=== PATIENT | male | born 1950 ===

== ENCOUNTER → 2021-12-19 09:55 | Outpatient (CLI) | payer MEDICARE, BC, SELFPAY ==
[2021-12-19 10:52] LABS: COVID19 -Nasal RAPID Negative (Negative)
== END ==
PROVIDERS: PCP Internal Medicine; Visit Provider Surgery
DX: Z20.822 Contact with and (suspected) exposure to COVID-19 (principal); Z01.812 Encounter for preprocedural laboratory examination
CPT/HCPCS: 87635; C9803

== ENCOUNTER 2021-12-22 10:05 | Day surgery (SDC) | payer MEDICARE, BC, OTHER, SELFPAY ==
[2021-12-22 10:32] VITALS: BP 157/97; PULSE 73; RESP 16; TEMP 35.6; O2SAT 98; BMI 28.3
[2021-12-22] MEDS: SODIUM CHLORIDE 0.9% 1,000 ML 84 ML IV (10:45)
--- NOTE | 2021-12-22 11:30 | PM.HP.1 ---
History of Present Illness History of Present Illness Date Patient Seen: 12/22/21 Time Patient Seen: 11:30 Chief complaint: Colonoscopy Narrative: Here for colon cancer screening. Patient History Family & Social History Social History: household members spouse Tobacco & Substance use: Smoking Status Never smoker alcohol intake current alcohol intake frequency holiday/special occasion Substance Use Type does not use Meds Home Medications and Allergies Home Medications Medication Instructions Recorded Confirmed Type aspirin 81 mg capsule 81 mg PO DAILY 12/22/21 12/22/21 History atorvastatin 80 mg tablet 80 mg PO DAILY 12/22/21 12/22/21 History hydrochlorothiazide 12.5 mg tablet 12.5 mg PO DAILY 12/22/21 12/22/21 History lisinopril 10 mg tablet 10 mg PO DAILY 12/22/21 12/22/21 History metoprolol succinate 25 mg 12.5 mg PO DAILY 12/22/21 12/22/21 History tablet,extended release 24 hr Allergies Allergy/AdvReac Type Severity Reaction Status Date / Time No Known Drug Allergies Allergy Verified 12/19/21 15:16 Review of Systems Review of Systems ROS: Yes All systems reviewed with the patient and are negative except as otherwise documented Exam Vital Signs (past 8 hours): - 12/22/21 10:32 Temperature 96.1 F L Pulse Rate 73 Respiratory Rate 16 Blood Pressure 157/97 H Pulse Oximetry 98 Oxygen Delivery Method Room Air Oxygen Flow Rate 0 Oxygen Delivery Method Room Air Oxygen Flow Rate 0 Const General: cooperative HENMT Head: normal to inspection Eyes General: appearance normal, both eyes and all related structures Neck Neck: normal visual inspection Chest Chest: normal inspection of the chest Resp Effort & Inspection: normal respiratory effort Cardio Rate: regular rate GI Inspection: normal to inspection Skin General: no rashes or lesions noted Neuro General: patient alert and patient awake Extrem General: normal to inspection and no pedal edema Psych Appearance: grossly normal Assessment & Plan Assessment & Plan narrative: 70-year-old male here for colon cancer screening. Colonoscopy is pursued today. Time Spent With Patient Critical Care time: I spent a total of [] minutes of critical care time on this patient's care today; this time is exclusive of procedural time.
--- NOTE | 2021-12-22 11:31 | PM.PREOP ---
Pre-operative Note COVID-19 COVID-19 status: Negative Result date/Date tested (Pos, Neg/Pending): 12/19/21 Criteria for continued procedure: Possibility delay results in more complex future surgery or treatment Interval Note History & Physical reviewed/Exam performed by Physician: Yes Changes to H&P: No ASA Class (for procedural sedation): II
--- NOTE | 2021-12-22 11:48 | P.OP.COLON_ITS ---
Operative Date/Time/Diagnoses Date of procedure: 12/22/21 Time of procedure: 11:48 Pre-op diagnosis: Colon cancer screening Post-op diagnosis: same Procedure & Clinicians Study performed: Colonoscopy Same procedure as scheduled: Yes Indications: Colon cancer screening Surgeon: Tee Roa Procedure Notes SCOAP/Timeout: Done Procedure in detail: After the risks and benefits were explained, written and verbal informed consent was obtained. The patient was brought into the procedure room and placed into the left lateral decubitus position. Please see nurse scroll machine operator notes for sedation details. Digital rectal examination was accomplished. The scope was introduced into the patient and advanced under direct visualization to the cecum as identified by the appendiceal orifice and ileocecal valve. The scope was slowly withdrawn to carefully examine the mucosa for any defects or lesions. Comprehensive imaging was accomplished throughout the rectum including the dentate line. The colon was decompressed, the scope was then removed from the patient who tolerated the procedure well. Adult colonoscope Bowel prep adequate Scope withdrawal time: 6 minutes Sedation minutes: 12 Specimen(s): none sent Complications: none Impression: The patient had some diverticulosis noted in the sigmoid. No significant polyps mass lesions or inflammatory features identified throughout. Patient had grade 3 nonbleeding nonthrombosed internal hemorrhoids. Endoscopic diagnosis 1. Grade 3 Hemorrhoids 2. Diverticulosis Post-procedure Plan for aftercare: 1. Continue to follow along in primary care 2. Consider repeat colon cancer screening in 10 years time. Disposition: PACU
[2021-12-22 11:49] VITALS: BP 107/76; PULSE 73; RESP 16; TEMP 36.5; O2SAT 95
[2021-12-22 11:54] VITALS: BP 108/80; PULSE 68; RESP 17; O2SAT 95
[2021-12-22 11:59] VITALS: BP 115/81; PULSE 65; RESP 19; TEMP 36.4; O2SAT 98
--- NOTE | 2021-12-22 13:36 | SUR.PHASEII ---
Pt ready to go, left unit in stable condition.
== END 2021-12-22 12:45 | disposition home or self-care (01) ==
PROVIDERS: PCP Internal Medicine; Referring Provider Internal Medicine Gastroenterology; Visit Provider Internal Medicine Gastroenterology
PROC: 0DJD8ZZ Inspection of Lower Intestinal Tract, Via Natural or Artificial Opening Endoscopic (ICD-10-PCS; CPT 45378; principal; 2021-12-22 11:00)
DX: Z12.11 Encounter for screening for malignant neoplasm of colon (principal); K57.30 Diverticulosis of large intestine without perforation or abscess without bleeding; K64.2 Third degree hemorrhoids
CPT/HCPCS: G0121; J2704

== ENCOUNTER 2025-01-22 17:20 | Emergency (ER) | payer MEDICARE, OTHER, SELFPAY ==
[2025-01-22 17:47] VITALS: BP 139/78; PULSE 81; RESP 18; TEMP 36.7; O2SAT 98; BMI 28.5
--- NOTE | 2025-01-22 17:59 | EKG_ITS ---
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
--- NOTE | 2025-01-22 18:00 | DI.US.S_ITS ---
PROCEDURE: US ABDOMEN LIMITED INDICATIONS: RUQ pain TECHNIQUE: Real-time scanning was performed of the abdominal and retroperitoneal organs, with image documentation. COMPARISON: None. FINDINGS: Liver: Liver is normal in size and homogeneous in echotexture. Gallbladder: Mild debris/sludge. No wall thickening. No pericholecystic edema. Negative sonographic Willard's sign. Biliary ducts: Intrahepatic bile ducts are non-dilated. Extrahepatic bile duct caliber measures 2 mm. Normal is 6-7 mm or less in diameter, or 10 mm or less post-cholecystectomy. Pancreas: Visualized portions of the pancreas are sonographically normal. Miscellaneous: No free abdominal fluid. IMPRESSION: Mild debris/sludge within the gallbladder without evidence of acute cholecystitis. Dictated by: Jovi Reynolds M.D. on 01/22/2025 at 18:49 Approved by: Jovi Reynolds M.D. on 01/22/2025 at 18:52
[2025-01-22 18:28] LABS: Add Manual Diff / Slide Review NO; Hematocrit 37.6 % (41-53); Hemoglobin 13.4 g/dL (13.5-17.5); Lymphocytes Absolute Auto 1500 /uL (1100-4500); Mean Corpuscular HGB Conc 35.7 % (30-36); Mean Corpuscular Hemoglobin 35.6 PG (26-34); Mean Corpuscular Volume 99.6 fL (80-100); Platelet Count 168 X10^3/uL (150-400)
[2025-01-22 18:35] LABS: Alanine Aminotransferase 49 IU/L (<50); Albumin 4.9 g/dL (3.5-5.0); Albumin Globulin Ratio 1.5 (1.0-2.8); Alkaline Phosphatase 72 U/L (38-126); Blood Urea Nitrogen 20 mg/dL (9-20); Calcium 9.7 mg/dL (8.4-10.2); Carbon Dioxide 25 mmol/L (22-32); Chloride 101 mmol/L (98-107); Estimated Glomerular Filt Rate > 60 mL/min (>60); Globulin 3.3 g/dL (1.7-4.1); Glucose 99 mg/dL (70-99); HEMOLYSIS < 15 (0-50); Lipase 268 U/L (23-300); Potassium 3.9 mmol/L (3.4-5.1); Sodium 138 mmol/L (137-145); Total Protein 8.2 g/dL (6.3-8.2)
--- NOTE | 2025-01-22 21:45 | PC.NURSE ---
pt feeling better after medication, no dizziness or nausea with standing able to walk without difficulty
--- NOTE | 2025-01-22 21:46 | ED.GENADULT ---
HPI - General Adult General Chief complaint: Abdominal Pain Stated complaint: pain under ribs right hand side front and back Time Seen by Provider: 01/22/25 17:53 Source: patient Mode of arrival: Ambulatory History of Present Illness HPI narrative: 74-year-old gentleman with a history of hypertension, coronary artery disease, hyperlipidemia who presents with waxing and waning episodes of right upper quadrant pain that has been present for the last at least 3 weeks and worsening over the last couple of days. He has not necessarily associated this with either eating or fasting. He has had an episode of emesis secondary to pain, there was no blood in the emesis. He has not been having any diarrhea. No chest pain or palpitations Related Data Home Medications ?Medication ?Instructions ?Recorded ?Confirmed aspirin 81 mg capsule 81 mg PO DAILY 12/22/21 12/22/21 atorvastatin 80 mg tablet 80 mg PO DAILY 12/22/21 12/22/21 hydrochlorothiazide 12.5 mg tablet 12.5 mg PO DAILY 12/22/21 12/22/21 lisinopril 10 mg tablet 10 mg PO DAILY 12/22/21 12/22/21 metoprolol succinate 25 mg 12.5 mg PO DAILY 12/22/21 12/22/21 tablet,extended release 24 hr Previous Rx's ?Medication ?Instructions ?Recorded oxycodone-acetaminophen 5 mg-325 1 tab PO Q6H PRN pain #14 tabs 01/22/25 mg tablet Allergies Allergy/AdvReac Type Severity Reaction Status Date / Time No Known Drug Allergies Allergy Verified 01/22/25 17:50 Review of Systems Review of Systems Narrative: Pertinent positive and negative findings as per HPI Patient History Medical History (Updated 01/22/25 @ 22:05 by Adriana Webb MD) Gallstones Hyperlipidemia Hypertension Coronary artery disease Social History household members: spouse alcohol intake: current Smoking Status: Never smoker alcohol intake frequency: holidays/special occasions only Exam Initial Vital Signs Initial Vital Signs: Vital Signs Temperature 98.0 F 01/22/25 17:47 Pulse Rate 81 01/22/25 17:47 Respiratory Rate 18 01/22/25 17:47 Blood Pressure 139/78 01/22/25 17:47 Pulse Oximetry 98 01/22/25 17:47 Oxygen Delivery Method Room Air 01/22/25 17:47 General: Healthy appearing, in no acute distress. Able to give a complete and coherent history. Well-nourished well-developed HEENT: Moist mucous membranes, normal sclera with reactive pupils, Respiratory: Lungs are clear to auscultation, no wheezing no rales no rhonchi. Full and symmetrical air movement Cardiac: Regular rate and rhythm no murmurs Abdomen: Soft, minor tenderness in the right upper quadrant without rebound or guarding Skin: Warm and dry, no rashes Neurologic: Grossly neurologically intact with no obvious asymmetries or abnormalities Extremities: No trauma, well perfused Psych: Cooperative, appropriate insight and affect Course Orders Ordered: ED Orders 01/22/25 17:52 EKG-12 Lead Stat 01/22/25 18:00 US abdomen limited Stat Complete Blood Count AUTO DIFF Stat Comprehensive Metabolic Panel Stat Lipase Stat Ondansetron HCl (Ondansetron 4 Mg/2 Ml Inj) 4 mg IV NOW PRN PRN Reason: Nausea And Vomiting Ondansetron HCl (Ondansetron 4 Mg Odt) 4 mg PO NOW PRN PRN Reason: Nausea And Vomiting Vital Signs Vital signs: Vital Signs - 8 hr 01/22/25 17:47 Temperature 98.0 F Pulse Rate 81 Respiratory Rate 18 Blood Pressure 139/78 Pulse Oximetry 98 Oxygen Delivery Method Room Air Medical Decision Making Lab Data 01/22/25 18:00 01/22/25 18:00 Labs: Lab Results 01/22/25 Range/Units 18:00 WBC 5.2 (4.5-11.0) X10^3/uL RBC 3.78 L (4.5-5.9) X10^6/uL Hgb 13.4 L (13.5-17.5) g/dL Hct 37.6 L (41-53) % MCV 99.6 (80-100) fL MCH 35.6 H (26-34) PG MCHC 35.7 (30-36) % RDW 13.1 (11.6-14.8) % Plt Count 168 (150-400) X10^3/uL Neut % (Auto) 56.3 (50-75) % Lymph % (Auto) 28.5 (25-40) % Pepin % (Auto) 10.6 (3-14) % Eos % (Auto) 4.2 H (2-4) % Baso % (Auto) 0.4 (0-2) % Neut # (Auto) 2900 (3531-1949) /uL Lymph # (Auto) 1500 (1055-0157) /uL Pepin # (Auto) 500 (0-900) /uL Eos # (Auto) 200 (0-450) /uL Baso # (Auto) 0 (0-100) /uL Sodium 138 (137-145) mmol/L Potassium 3.9 (3.4-5.1) mmol/L Chloride 101 (98-107) mmol/L Carbon Dioxide 25 (22-32) mmol/L BUN 20 (9-20) mg/dL Creatinine 0.88 (0.66-1.25) mg/dL Estimated GFR > 60 (>60) mL/min BUN/Creatinine Ratio 22.7 H (6-22) Glucose 99 (70-99) mg/dL Calcium 9.7 (8.4-10.2) mg/dL Total Bilirubin 0.5 (0.2-1.3) mg/dL AST 43 (17-59) IU/L ALT 49 (<50) IU/L Alkaline Phosphatase 72 (38-126) U/L Total Protein 8.2 (6.3-8.2) g/dL Albumin 4.9 (3.5-5.0) g/dL Globulin 3.3 (1.7-4.1) g/dL Albumin/Globulin Ratio 1.5 (1.0-2.8) Lipase 268 (23-300) U/L Urine Dip Bedside Urine Glucose Negative Bedside Urine Bilirubin - Negative Bedside Urine Ketone - Negative Urine Specific Richey 1.020 Bedside Urine Occult Blood - Negative Bedside Urine pH 6.0 Bedside Urine Protein - Negative Bedside Urine Urobilinogen - Negative Bedside Urine Nitrite - Negative Bedside Urine Leukocytes - Negative Esterase Point of care testing: Urine Dip Bedside Urine Glucose Negative Bedside Urine Bilirubin - Negative Bedside Urine Ketone - Negative Urine Specific Richey 1.020 Bedside Urine Occult Blood - Negative Bedside Urine pH 6.0 Bedside Urine Protein - Negative Bedside Urine Urobilinogen - Negative Bedside Urine Nitrite - Negative Bedside Urine Leukocytes - Negative Esterase [facility] Narrative Medical decision making narrative: 74-year-old gentleman presents with waxing and waning right upper quadrant pain. No fevers or chills Imaging, ultrasound, shows mobile gallstones without evidence of acute cholecystitis Lab work is reassuring including no leukocytosis no elevated liver enzymes and normal lipase Patient had a single dose of half a mg Dilaudid which helped with the pain control Care is reviewed with , general surgery. Given the fact that his pain is waxing and waning is controlled by pain medications and he is not showing signs of acute cholecystitis he will be discharged home this evening with urgent outpatient follow up and anticipation of outpatient scheduled laparoscopic cholecystectomy. Findings reviewed with the patient and reasons to return to the emergency department are clearly defined including fevers as well as pain out of control. Discharge Plan Departure Patient Disposition: Home Clinical Impression: Gallbladder pain, Gallstones Instructions: DI for General Gallbladder Conditions Activity Restrictions/Additional Instructions: Thank you for coming in today It looks like your pain is due to gallstones. Fortunately, there is no evidence of gallbladder infection, liver changes, kidney problems or pancreas problems. This means that you do not have to have emergent surgery this evening. You do however still need to follow up with our surgeon. I reviewed your case with Dr. Luna. Please give his office a call, [facility], . He will need to be seen within the next couple of days to schedule an outpatient laparoscopic cholecystectomy or at least discuss further options. Your gallbladder helps to just fat. The lowest fat diet that you are able to tolerate will help with pain control. The more fat you eat, the more your gallbladder squeezes in the more pain that you will have. If you are having pain that can not be controlled with pain medication that I have given you have at home, fevers, chills or are clearly worsening you do need to return to the emergency department. Prescriptions: New oxycodone-acetaminophen 5-325 mg tablet 1 tab PO Q6H PRN (Reason: pain) Qty: 14 0RF No Action atorvastatin 80 mg tablet 80 mg PO DAILY Patient Comments: TAKE ONE TABLET BY MOUTH ONE TIME DAILY IN THE EVENING lisinopril 10 mg tablet 10 mg PO DAILY Patient Comments: TAKE ONE TABLET BY MOUTH ONE TIME DAILY metoprolol succinate 25 mg tablet extended release 24 hr 12.5 mg PO DAILY Patient Comments: TAKE 1/2 TABLET BY MOUTH ONCE DAILY hydrochlorothiazide 12.5 mg tablet 12.5 mg PO DAILY Patient Comments: TAKE 1 TABLET BY MOUTH ONCE DAILY IN THE MORNING aspirin 81 mg Capsule 81 mg PO DAILY Referrals: Kiersten Alvarado MD [Primary Care Provider, Family Practice] Stand Alone Forms: Patient Portal/API
[2025-01-22 22:44] VITALS: BP 130/74; PULSE 72; RESP 18; O2SAT 99
== END 2025-01-22 22:51 | disposition home or self-care (01) ==
PROVIDERS: Emergency Provider Emergency Medicine; PCP Student in an Organized Health Care Education/Training Program
DX: K80.20 Calculus of gallbladder without cholecystitis without obstruction (principal); K82.9 Disease of gallbladder, unspecified
CPT/HCPCS: 76705; 80053; 81003; 83690; 85025; 93005; 96374; 99283; 99284; J1171

== ENCOUNTER 2025-02-13 07:48 | Day surgery (SDC) | payer MEDICARE, OTHER, SELFPAY ==
[2025-02-06 13:45] VITALS: BMI 28.2
[2025-02-13] VITALS (12 sets, daily range): BP systolic 120–154; BP diastolic 57–83; PULSE 77–84; RESP 15–24; TEMP 36.2–36.6; O2SAT 94–98
--- NOTE | 2025-02-13 | PATH_ITS ---
[facility] Accession Number: [id number] No. of containers..01 Tissue . 01 Material submitted: . gallbladder - GALLBLADDER . 01 Diagnosis: GALLBLADDER, CHOLECYSTECTOMY: Chronic cholecystitis and cholelithiasis. MRV 02/21/2025 1327 Local . 01 Electronically signed: . Radha Otero MD, Pathologist NPI- [id number] . 01 Gross description: . The specimen is received in formalin with two patient identifiers and gallbladder consists of a 7.9 x 3.0 x 2.2 cm, previously opened gallbladder. The serosa is hayes-green, smooth, glistening, and otherwise unremarkable. There is a 0.4 x 0.3 cm probe-patent, clipped cystic duct which is further inked blue. The specimen is opened to show a uniformly thick gallbladder wall at 0.1 cm and a hayes-green, finely granular mucosa that is free of exophytic lesions or masses. The lumen is filled with approximately 30 mL of green viscous bile, and there is a 0.5 cm in greatest dimension aggregate of black, multifaceted, crushed gallstones. Grey Roll Worker sections are submitted in cassette A1 to include cystic duct. ([id number]) /MRV 02/14/2025 2018 Local . 01 Pathologist provided ICD-10: K80.10, K81.1 . 01 CPT . 633435 Specimen Comment: A courtesy copy of this report has been sent to [facility] Pathology Performed at: [address] [address], [place], [place] [id number] MD Andres Dawn MD Phone: [phone]
--- NOTE | 2025-02-13 06:25 | PM.PREOP ---
Pre-operative Note Interval Note History & Physical reviewed/Exam performed by Physician: Yes Changes to H&P: No ASA Class (for procedural sedation): II
[2025-02-13] MEDS: LACTATED RINGERS 1,000 ML 42 ML IV ×2 (08:18→10:48)
[2025-02-13] MEDS: ACETAMINOPHEN 325 MG TABLET 975 MG PO (08:18)
--- NOTE | 2025-02-13 09:27 | SUR.OPER ---
Supine on padded OR bed, head on pillow, safety belt at thigh, right arm padded and tucked at side. Left arm secured on padded arm board <90 degrees abduction. Legs uncrossed. Padded footboard in place. Tape over blanket to secure lower legs.
[2025-02-13] MEDS: BUPivacaine 0.25% W/ EPI (PF) 30 ML VIAL 60 ML INJ (09:48)
--- NOTE | 2025-02-13 10:07 | P.OP_ITS ---
Operative Date/Time/Diagnoses Date of procedure: 02/13/25 Time of procedure: 10:07 Pre-op diagnosis: Symptomatic cholelithiasis Post-op diagnosis: same Procedure & Clinicians Procedure: Laparoscopic cholecystectomy with intraoperative cholangiogram attempted Same procedure(s) as scheduled: Yes Indications: 74yo M with symptomatic cholelithiasis Surgeon: Cristofer Luna Assisted?: Yes Grants Administrator: Aaron Solis Anesthesia Type: General Operative Notes Findings: Distended gallbladder, cholangiogram catheter would not advance likely due to spiral valves, unable to achieve cholangiogram, multiple small pigment stones expressed by milking the duct with maryland grasper Closure Type: primary Specimen(s): other (gallbladder) Applied: none Estimated Blood Loss (mL): 10 Blood products transfused: none Procedure in detail: After informed consent and satisfactory general endotracheal anesthesia, the abdomen was prepped and draped in the usual sterile manner. The patient received appropriate preoperative antibiotics and DVT prophylaxis. Surgical time-out was performed with all team members in agreement. The pneumoperitoneum was established under direct vision using the Gallego direct trocar cutdown technique. An 0 Vicryl [id number] suture was placed in the umbilical fascia. The abdominal cavity was insufflated to a pressure of 12 mmHg with carbon dioxide gas. We were able to utilize the lower pressure to reduce pain. The 10 mm, 30 degree lens was inserted and no trauma secondary to the trocar insertion was noted. The 5 mm right upper quadrant trocars x 3 were inserted under direct vision. The patient was placed in reverse Trendelenburg, [id number] position. The gallbladder was noted to be tensely distended but easy to grasp. There were no greater omental adhesions to the gallbladder. The gallbladder fundus was grasped and retracted over the liver. The infundibulum was grasped and retracted laterally for proper exposure of the cystic duct and artery. We used the L hook cautery to score the peritoneum on the medial and lateral surfaces of the gallbladder. The cystic duct and artery were skeletonized with hook cautery dissection. We were able to achieve the critical view of safety with 2 distinct structures entering the gallbladder with segment 5 of the liver posterior. A cholangiogram was attempted by placing hemolock clips on the cystic duct next to the gallbladder, making a ductotomy with laparoscopic Metzenbaum scissors and milking the duct with a [place] grasper. This expressed four small pigmented stones followed by bile consistent with the cystic duct being open. We used the yellow ureteral catheter through the Gómez clamp but we were unable to advance the catheter likely due to spiral valves. Multiple angles were attempted in addition to a saline flush but we were unable to advance the catheter. We also tried to grasp the catheter just inside the ductotomy but the saline simply extravasated so further attempts at cholangiography were abandoned. With this, the cystic duct was doubly clipped and divided with Metzenbaum scissors. The cystic artery was doubly clipped and divided with Metzenbaum scissors. The adhesions between the gallbladder and the liver were divided with hook cautery. The gallbladder was placed into an endo- pouch and removed. The right upper quadrant was irrigated and this was suctioned dry. The liver bed and clips were inspected and there was no bleeding or bile drainage noted. The pneumoperitoneum was released, the trocars were removed. The 0 Vicryl [id number] suture was tied at the umbilical fascia. There was no bleeding noted at the trocar sites. The instrument, sponge and needle counts were all correct x 2. The estimated blood loss was minimal. The skin incisions were closed using 4-0 Monocryl in a subcuticular manner. Dermabond glue was applied as a final dressing. The patient tolerated the procedure well and was extubated in the operating room and transported to the recovery area in stable condition. Complications: none Post-operative Condition: stable Disposition: PACU Plan for aftercare: PACU then home
--- NOTE | 2025-02-13 10:20 | EKG_ITS ---
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
[2025-02-13] MEDS: ONDANSETRON 4 MG/2 ML INJ IV (10:25)
[2025-02-13] MEDS: BACITRACIN OINT 0.9 GM PCKT 1 APPLIC TOP (11:17)
--- NOTE | 2025-02-13 11:20 | SUR.PHASEII ---
Thin application of Bacitracin applied to upper abdomen erythema, per [facility] DE JESUS Holley.
== END 2025-02-13 12:17 | disposition home or self-care (01) ==
PROVIDERS: PCP Nurse Practitioner Acute Care; Referring Provider Surgery; Visit Provider Surgery
PROC: 0FT44ZZ Resection of Gallbladder, Percutaneous Endoscopic Approach (ICD-10-PCS; CPT 47563; principal; 2025-02-13 09:15)
DX: K80.20 Calculus of gallbladder without cholecystitis without obstruction (principal)
CPT/HCPCS: 47563; 82962; 93005; 93010; J0689; J1100; J1171; J1885; J2405; J2704; J3010; J3490; J7120; Q9967